=== PATIENT | male | born 1975 | race African-American/Black ===

== ENCOUNTER 2020-03-28 23:30 | Emergency (ER) | payer OTHER, SELFPAY ==
[2020-03-29 00:07] VITALS: BP 123/71; PULSE 60; RESP 16; TEMP 36.8; O2SAT 97; BMI 35.5
--- NOTE | 2020-03-29 01:01 | PC.NURSE ---
report given to rex mcgee.
--- NOTE | 2020-03-29 01:01 | ED.DENTAL ---
HPI - Dental/Oral General Chief complaint: Dental/Oral Stated complaint: ABSCESS/DENTAL PAIN Time Seen by Provider: 03/29/20 01:01 Source: patient History of Present Illness HPI Narrative: This is a 44-year-old male with presentation for right lower dental pain and suspected infection but denies any difficulty swallowing, opening his mouth, for breathing. In addition, he denies any fevers, chills, sore throat. Related Data Previous Rx's Medication Instructions Recorded amoxicillin-pot clavulanate 1 tab PO Q12H 7 Days #14 tab 03/29/20 [Augmentin] Allergies Allergy/AdvReac Type Severity Reaction Status Date / Time No Known Allergies Allergy Verified 03/29/20 00:05 Review of Systems Review of Systems: Pertinent positives and negatives as stated in HPI 10 point review systems is otherwise negative. PMFSH Past Medical History Source: nursing notes reviewed Medical History Hyperthyroidism Social History Social History Smoking Status: Current every day smoker Substance Use Type: Marijuana Advance Directives: No Physical Exam Vital Signs: Vital Signs: Last Vital Signs Temp 98.3 F 03/29/20 00:07 Pulse 60 03/29/20 00:07 Resp 16 03/29/20 00:07 BP 123/71 03/29/20 00:07 Pulse Ox 97 03/29/20 00:07 Body Mass Index 35.5 VITAL SIGNS: Reviewed. GENERAL: Well developed, well nourished, in no acute distress. EARS: Ext canals without abnormality, TMs non-bulging and non-erythematous NOSE: Nares patent bilateral OROPHARYNX: no oral lesions noted, posterior pharynx clear, dental caries noted at RIGHT LOWER molar but no gum inflammation appreciated, no tongue or oral floor swelling, no trismus or drooling. RIGHT submandibular swelling noted NECK: Supple, no adenopathy LUNGS: Normal breath sounds. No adventitious sounds or accessory muscle use. SpO2<97> CARDIOVASCULAR: Regular rate and rhythm without noted murmurs ABDOMEN: Obese, Soft, non-tender, non-distended with bowel sounds. NEUROLOGIC: Alert and oriented x 4. Course Course Course Narrative: This is a 44-year-old male with history and clinical presentation consistent with dental infection at the right lower molar without evidence of Alex's, trismus and patient received initial antibiotics and analgesics here in the emergency department and then was discharged in stable condition with a prescription for remaining course of antibiotics. He was strongly encouraged to follow up with dentist by calling 1st thing in the morning. Discharge Plan Discharge Clinical Impression: Toothache, Dental abscess Patient Disposition: Home, Self-Care Instructions: Dental Abscess (ED), Toothache (ED) Additional Instructions: 1. Tylenol 1000 mg, orally, every 6 hours as needed for pain control or fevers greater than 100.4. Do not exceed 4000 mg within 24 hours. 2. [id number] Anbesol, apply to tooth that is having the pain as directed on the outside packaging. 3. Please return to this emergency department should you experience any difficulty breathing, opening her mouth, or difficulty swallowing. Prescriptions: New amoxicillin-pot clavulanate [Augmentin] 875-125 mg tablet 1 tab PO Q12H 7 Days Qty: 14 RF: 0
[2020-03-29] MEDS: Amoxicillin/Potassium Clav 875 MG TABLET PO (01:18)
[2020-03-29] MEDS: Acetaminophen 325 MG TABLET 975 MG PO (01:19)
== END 2020-03-29 01:22 | disposition home or self-care (01) ==
PROVIDERS: Emergency Provider Student in an Organized Health Care Education/Training Program
DX: K08.89 Other specified disorders of teeth and supporting structures (principal); K04.7 Periapical abscess without sinus; F17.200 Nicotine dependence, unspecified, uncomplicated
CPT/HCPCS: 99283